=== PATIENT | female | born 1990 | race Caucasian/White ===

== ENCOUNTER → 2018-01-14 09:40 | Outpatient (CLI) | payer OTHER, SELFPAY ==
--- NOTE | 2018-01-14 09:44 | DI.US.S_ITS ---
PROCEDURE: US ABDOMEN COMPLETE INDICATIONS: Pain TECHNIQUE: Real-time scanning was performed of the abdominal and retroperitoneal organs, with image documentation. COMPARISON: None. FINDINGS: Liver: Liver is normal in size and homogeneous in echotexture. Gallbladder: No gallstones. No sonographic Gonzalez's sign. No gallbladder wall thickening or pericholecystic fluid. Biliary ducts: Intrahepatic bile ducts are non-dilated. Extrahepatic bile duct caliber is within normal limits. Pancreas: Visualized portions of the pancreas are sonographically normal. Spleen: Spleen is normal in size and homogeneous in echotexture. Kidneys: Kidneys are normal in size and echotexture. Right kidney measures 11.9 cm long; left kidney measures 12 cm long. No hydronephrosis or nephrolithiasis. No solid masses. A 1.8 cm cyst is seen in mid to lower pole of right renal cortex. A 1.9 cm simple cyst is seen in mid to lower pole of left renal cortex. Urinary bladder is well-distended with prevoid volume of 103 cc. No discrete bladder wall mass or bladder wall thickening. No significant post void residual is seen. Bilateral ureteric jets are noted. Aorta: Visualized aorta is normal in caliber at less than 3 cm. Iliacs: Proximal common iliac arteries are normal in caliber at less than 2.5 cm. IVC: Intrahepatic inferior vena cava is patent. Miscellaneous: No free abdominal fluid. IMPRESSION: Unremarkable ultrasound examination of abdomen. Dictated by: Lorenzo Gabriel M.D. on 01/14/2018 at 10:36 Approved by: Lorenzo Gabriel M.D. on 01/14/2018 at 10:50
== END ==
PROVIDERS: Family Provider Nurse Practitioner Family; PCP Family Medicine; Visit Provider Physician Assistant
DX: R10.9 Unspecified abdominal pain (principal); M54.9 Dorsalgia, unspecified
CPT/HCPCS: 76700